=== PATIENT | female | born 1985 | race Caucasian/White ===

== ENCOUNTER 2018-12-16 21:05 | Emergency (ER) | payer BC, OTHER ==
[~2018-12-16] VITALS: Ht 175.3 cm; Wt 54.4 kg
[2018-12-16] MEDS ORDERED: SULFAMETH/TRIMETH 800/160 MG TABLET PO ONE (23:15)
[2018-12-16 23:31] VITALS: BP 105/72
[2018-12-16] MEDS ORDERED: SULFAMETH/TRIMETH 800/160 MG TABLET ONE (23:32)
--- NOTE | 2018-12-16 23:33 | NUR ---
Patient discharged to home in stable conditon. Written and verbal after care instructions given. Patient verbalizes understanding of instructions. ALKED OUT OF ER WITH NO DISTRESS NOTED
== END 2018-12-16 23:33 | disposition home or self-care (01) ==
LOC: ER 21:07
DX: H60.12 Cellulitis of left external ear (principal)
CPT/HCPCS: A4663